=== PATIENT | male | born 1995 | race Hispanic/Latino ===

== ENCOUNTER 2020-04-16 08:02 | Emergency (ER) | payer OTHER ==
[2020-04-16 09:45] LABS: RAPID GROUP A STREP NEGATIVE (NEGATIVE)
== END 2020-04-16 10:34 | disposition home or self-care (01) ==
LOC: EDH 08:02
DX: B34.9 Viral infection, unspecified (principal); Z20.828 Contact with and (suspected) exposure to other viral communicable diseases; Z72.0 Tobacco use
CPT/HCPCS: 87426; 87804 ×2; 87880; 99283; U0003